=== PATIENT | female | born 2000 | race Hispanic/Latino ===

== ENCOUNTER 2020-05-18 21:44 | Emergency (ER) | payer OTHER ==
[~2020-05-18] VITALS: Ht 160 cm; Wt 56.9 kg
[2020-05-18] MEDS ORDERED: PRENTAB9 PO (21:50)
[2020-05-18 22:42] LABS: BASO % 0.1 % (0.0-1.0); EOS % 0.1 % (0.0-3.0); HEMATOCRIT 40.6 % (36.0-47.0); HEMOGLOBIN 13.6 g/dl (12.0-15.5); LYMPH # 1.7 10^3/uL (1.5-5.0); MEAN CORPUSCULAR HEMOGLOBIN 29.2 pg (27.0-33.0); MEAN CORPUSCULAR HGB CONC 33.5 g/dl (32.0-36.5); MEAN CORPUSCULAR VOLUME 87.1 fl (80.0-96.0); MONO # 0.8 10^3/uL (0.0-0.8); MONO % 7.3 % (2.0-8.0); NEUTROPHILS # 8.7 10^3/uL (1.5-8.5); NEUTROPHILS % 77.1 % (36.0-66.0); PLATELET COUNT, AUTOMATED 247 10^3/uL (150-450); RED BLOOD COUNT 4.66 10^6/uL (4.00-5.40); WHITE BLOOD COUNT 11.3 10^3/uL (4.0-10.0)
[2020-05-18 23:25] LABS: ALBUMIN 3.9 GM/DL (3.2-5.2); ALT/SGPT 20 U/L (12-78); BILIRUBIN,DIRECT 0.1 MG/DL (0.0-0.2); BILIRUBIN,TOTAL 0.3 MG/DL (0.2-1.0); BLOOD UREA NITROGEN 7 MG/DL (7-18); CALCIUM LEVEL 9.1 MG/DL (8.5-10.1); CARBON DIOXIDE LEVEL 24 MEQ/L (21-32); CHLORIDE LEVEL 107 MEQ/L (98-107); CREATININE FOR GFR 0.66 MG/DL (0.55-1.30); GLOMERULAR FILTRATION RATE > 60.0 (>60); GLUCOSE, FASTING 92 MG/DL (70-100); HCG, SERUM QUANTITATIVE 79920 MIU/ML; LIPASE 77 U/L (73-393); SODIUM LEVEL 141 MEQ/L (136-145); TOTAL PROTEIN 7.4 GM/DL (6.4-8.2)
--- NOTE | 2020-05-18 23:30 | REPVR ---
PROCEDURE INFORMATION: Exam: US First Trimester, Transabdominal Exam date and time: 05/18/2020 10:51 PM Age: 20 years old Clinical indication: Lmp or gestational age (in weeks): 6w 0d; Other: Vaginal bleeding; ; Additional info: Vaginal bleeding, 7 weeks TECHNIQUE: Imaging protocol: Real-time transabdominal obstetrical ultrasound of the maternal pelvis and a first trimester , less than 14 weeks 0 days, with image documentation. COMPARISON: No relevant prior studies available. FINDINGS: Gestation: Gestational sac within the uterus with pole and yolk sac. Embryonic/ heart rate: heartbeat of 115 bpm. Placenta: Unremarkable. No subchorionic bleed. Amniotic fluid: Amniotic fluid is normal for gestational age. BIOMETRY: Ashippun-Rump length: Ashippun-rump length is 3.9 mm suggesting an age of 6 weeks 1 day. The EDC is 01/10/2021. MATERNAL: Uterus: Unremarkable. Cervix: Unremarkable. Right adnexa: The right ovary measures 2.4 x 3.5 x 2.2 cm and demonstrates normal blood flow. Left adnexa: The left ovary measures 4.1 x 1.8 x 2.9 cm and demonstrates normal blood flow. Intraperitoneal space: No intraperitoneal free fluid. IMPRESSION: 1. Single live intrauterine fetus with an estimated age of 6 weeks 1 day. The EDC is 01/10/2021. 2. heartbeat of 115 bpm is noted. Electronically signed by: Shaan Hill On 05/18/2020 23:30:57 PM
[2020-05-19 00:18] LABS: CHLAMYDIA DNA AMPLIFICATION NEGATIVE (NEGATIVE); GC DNA AMPLIFICATION NEGATIVE (NEGATIVE)
[2020-05-19 01:07] VITALS: BP 130/68
== END 2020-05-19 01:08 | disposition home or self-care (01) ==
LOC: M ED 21:44
DX: O20.0 Threatened abortion (principal); Z3A.01 Less than 8 weeks gestation of pregnancy

== ENCOUNTER 2020-08-22 09:35 | Emergency (ER) | payer OTHER ==
[~2020-08-22] VITALS: Ht 160 cm; Wt 58.9 kg
[~2020-08-22 09:35] MED LIST: PRENTAB9 PO
[2020-08-22] MEDS ORDERED: IRON325T9 PO (09:44)
[2020-08-22] MEDS ORDERED: NS 1,000 ML IV ONE (12:15)
[2020-08-22] MEDS ORDERED: ACETAMINOPHEN TAB 650MG DOSE (2X325MG) PO ONE (12:15)
[2020-08-22 13:04] LABS: BASO % 0.2 % (0.0-1.0); EOS % 0.1 % (0.0-3.0); HEMATOCRIT 31.9 % (36.0-47.0); HEMOGLOBIN 10.6 g/dl (12.0-15.5); LYMPH # 1.9 10^3/uL (1.5-5.0); LYMPH % 14.9 % (24.0-44.0); MEAN CORPUSCULAR HEMOGLOBIN 30.3 pg (27.0-33.0); MEAN CORPUSCULAR HGB CONC 33.2 g/dl (32.0-36.5); MEAN CORPUSCULAR VOLUME 91.1 fl (80.0-96.0); MONO # 0.7 10^3/uL (0.0-0.8); MONO % 5.2 % (2.0-8.0); NEUTROPHILS % 79.1 % (36.0-66.0); PLATELET COUNT, AUTOMATED 206 10^3/uL (150-450); WHITE BLOOD COUNT 12.6 10^3/uL (4.0-10.0)
[2020-08-22] MEDS ORDERED: CEPH500C PO (14:12)
[2020-08-22] MEDS ORDERED: CEPHALEXIN 500 MG CAP PO ONE (14:20)
[2020-08-22 14:36] VITALS: BP 96/54
== END 2020-08-22 14:50 | disposition home or self-care (01) ==
LOC: M ED 09:35
DX: O23.42 Unspecified infection of urinary tract in pregnancy, second trimester (principal); Z3A.19 19 weeks gestation of pregnancy

== ENCOUNTER 2020-10-06 11:45 | Outpatient (CLI) | payer OTHER ==
[~2020-10-06] VITALS: Ht 160 cm; Wt 61.7 kg
[~2020-10-06 11:45] MED LIST changes: +CEPH500C PO; +IRON325T9 PO
[2020-10-06 12:04] VITALS: BP 107/51
--- NOTE | 2020-10-06 15:41 | IPNPDOC ---
Obstetrical Progress Note Date of Service Oct 06, 2020 Subjective 20yo at 26w2d by 1st TM US presents to triage with complaint of vaginal spotting this AM. States she noticed spotting after using the restroom first thing this AM, describes as pink tinge on tissue when wiping. Denies any bright red bleeding. Otherwise without OB complaint and denies pain/ctx, LOF or discharge +GFM. Also denies dysuria or hematuria, and denies hemorrhoids. Denies recent sexual activity Objective Vital Signs Date Time Temp Pulse Resp B/P (MAP) Pulse Ox O2 Delivery O2 Flow Rate FiO2 10/06/20 12:04 98.2 65 16 107/51 (69) Assessment Heart Rate (FHR): 120 Variability: Moderate Decelerations: None Heart Rate Tracing: Category I Tocometer Contractions: No Sterile Vaginal Examination Dilation: None (visually closed on speculum exam. moderate amount of thin, peterson discharge. Wet prep/VIV collected. +clue cells noted.) Assessment and Plan Additional Comments 20yo at 26w2d by 1TM US with TYLER 14 Oct with spotting. FHT reassuring, no contractions on tocometer. Bedside US performed, fetus in breech presentation with subjectively normal fluid and posterior placenta. Speculum exam performed with visually closed cervix and moderate amount of peterson-white discharge. +clue cells noted on wet prep. No blood noted in vaginal vault. Reviewed findings with patient and Rx provided for Flagyl. Pt states she has follow up US scheduled for next week for repeat evaluation of EIF noted on anatomy US. States she doesn't have a MARICARMEN appt - encouraged her to call clinic on Thursday and obtain MARICARMEN visit for 28wks. Return precautions given and all questions answered. MARYAM TRAORE M.D. Oct 06, 2020 15:41
== END 2020-10-06 13:15 | disposition home or self-care (01) ==
LOC: M LDO 11:45
PROVIDERS: ATTEND Obstetrics & Gynecology
DX: O26.852 Spotting complicating pregnancy, second trimester (principal); Z3A.26 26 weeks gestation of pregnancy; O32.1XX0 Maternal care for breech presentation, not applicable or unspecified; O26.892 Other specified pregnancy related conditions, second trimester; N89.8 Other specified noninflammatory disorders of vagina; Z79.899 Other long term (current) drug therapy
CPT/HCPCS: 76815; G0378; G0463

== ENCOUNTER 2021-01-08 00:57 | Outpatient (CLI) | payer OTHER ==
[~2021-01-08] VITALS: Ht 160 cm; Wt 68.9 kg
[2021-01-08 01:38] VITALS: BP 120/59
[2021-01-08 02:05] VITALS: BP 119/73
== END 2021-01-08 02:05 | disposition home or self-care (01) ==
LOC: M LDO 00:57
PROVIDERS: ATTEND Obstetrics & Gynecology
DX: O60.03 Preterm labor without delivery, third trimester (principal); Z3A.39 39 weeks gestation of pregnancy
CPT/HCPCS: 59025; G0378; G0463

== ENCOUNTER 2021-01-08 04:32 | Inpatient (IN) | payer OTHER ==
[2021-01-08] VITALS (36 sets, daily range): BP systolic 89–133; BP diastolic 49–76
[~2021-01-08] VITALS: Ht 160 cm; Wt 70.0 kg
[2021-01-08] MEDS ORDERED: OXYTOCIN DRIP 30 UNITS in IV 1 EA IV PRN ×4 (05:10)
[2021-01-08] MEDS ORDERED: METHYLERGONOVINE MALEATE 0.2 MG/ML VIAL (J2210) IM PRN (05:10)
[2021-01-08] MEDS ORDERED: LIDOCAINE 1% MDV 20ML VIAL INFIL PRN (05:10)
[2021-01-08] MEDS ORDERED: CARBOPROST TROMETHAMINE 250 MCG/ML AMP IM PRN (05:10)
[2021-01-08] MEDS ORDERED: TRANEXAMIC ACID INJection 1,000 MG in NS 100 ML IV PRN (05:10)
--- NOTE | 2021-01-08 05:40 | HPEPDOC ---
Obstetrical History & Physical General Date of Admission 01/08/21 History of Present Illness 20yo G1 at 39+5 presenting in labor with rupture of membranes around 0500 with clear fluid. She denies vaginal bleeding. Endorses regular painful contractions, desiring epidural. Endorses positive movement. Chief Complaint: Contractions, term, LOF, term Care Care: Other (late entry to care) Dating Final EDC: Jan 10, 2021 Final EDC by: LMP LMP: Mar 26, 2020 Antepartum Course Diagnos(e)s -late entry to care -ascus pap HPV neg -recurrent UTI on macrobid prophylaxis -anemia -varicella nonimmune Height (inches): 63 Pre- weight (lbs.): 115 Admission Weight (lbs.): 152 Change in Weight (lbs.): 37 Past Medical History Past Obstetrical History : Past Obstetrical History: Primgravida INFORMATION CODER History: Other (ascus HPV neg) Past Medical History Medical History migraines with aura Surgical History: Tooth extraction (wisdom) Family History Family History mother diabetes Social History Marital Status: Family situation: Spouse/partner home Psychosocial History: No pertinent psych hx * Smoker: non-smoker Alcohol: Denies Drugs: denies Abuse Violence Screening Have you been hit/kicked/slapp: No Have you been sexually assault: No Imunizations Tdap status: current Influenza Status: current Allergies Coded Allergies: No Known Allergies (Unverified , 05/18/20) Medications Scheduled Cephalexin (Cephalexin) 500 Mg Capsule, 500 MG PO TID Ferrous Sulfate (Iron) 325 Mg Tablet, 1 TAB PO DAILY No.137/Iron/Folic Acd ( Vitamin Tablet) 1 Each Tablet, 1 TAB PO DAILY Physical Examination Physical Examination GENERAL: Alert and oriented times three. ABDOMEN: Gravid and non-tender to touch. FETUS: Is vertex (VTX) by ultrasound, efw 3200g HEART RATE: Regular rate LUNGS: Clear to auscultation (CTA). EXTREMITIES: No edema. Laboratory Data Urine Culture: No Growth Pertinent Laboratoy Data Blood Type: O+ HIV: Negative Hepatitis B: Negative Rapid Plasma Reagin: Nonreactive Rubella: Immune Varicella: Nonreactive Chlamydia/Gonorrhea: Negative Group B Streptococcus: Negative Cystic Fibrosis: Negative Glucose Tolerance Test: 136 Anatomy Ultrasound Ultrasound Date: Jan 12, 2021 Placenta Location: Posterior Normal Anatomy: Yes Placenta Previa: No Steroid Therapy Steroid Therapy: No Vaginal Examination Dilation: 3 cm Effacement: 70% Station: -2 Cervical Consistency: Soft Cervical Position: Middle Presentation: Cephalic presentation Position: Vertex (occiput) Assessment Heart Rate (FHR): 130 Variability: Moderate Accelerations: Positive Decelerations: Early Tocometer Contractions: Yes Frequency: every 2-5 min. Multi-drug resistant Organism: No history of MDRO Assessment/Plan Assessment Verenice Lowery is a 20-year-old G1 at 39+5 weeks by LMP and 1st trimester ultrasound. Presents to Labor and Delivery (L&D) for contractions and loss of clear fluid. Grossly ruptured in triage. Cervix 3cm. Desires epidural. GBS negative. Category I tracing. Plan Admit and orient. Hammer Driver and consent. Diet: clear liquid. Group B Streptococcus (GBS) [negative]. Labs and intravenous (IV) per unit protocol. Counseled on Pitocin and induction of labor (IOL). Lactated Ringers at 125mL/hr. Anticipate [normal spontaneous delivery ()]. C-S as appropriate. Labor and Delivery Counseling L&D consent We will deliver your baby through the vagina with possible assistance of forceps or vacuum device if needed for maternal or indications. Forceps and vacuum are devices that can assist with vaginal delivery when normal pushing efforts cannot achieve delivery on their own or when delivery is needed in an emergency for baby's well-being. Medications may be required to induce or augment (help) your labor in order to achieve a vaginal delivery. An episiotomy may be required to help your baby to delivery vaginally. You may also require repair of any lacerations or tears of your vagina or vulva that are caused by delivery. In some cases, emergencies can occur that require an emergency section delivery so quickly that there may not be enough time to stop and complete consent forms for section. Understand that if this occurs, your providers will discuss the need for a section with you before they proceed with surgery. section is the delivery of your baby through an incision in your abdomen. In some situations, section may be safer to mom and baby than continuing labor and is only performed when clinically indicated. Risks of vaginal delivery include but are not limited to: Bleeding, infection, injury to the vagina, pelvic structures, injury to baby, damage to the uterus, reactions to anesthesia, uterine rupture, risk of hysterectomy for life threatening bleeding, or . Medications used to induce or augment labor may increase your risk for infection, uterine tachysystole, uterine rupture, heart rate abnormalities, need for emergency delivery or possible hysterectomy, and hemorrhage. Additional risks for use of forceps and vacuum include: increased risk of perineal and vaginal lacerations, risk of urinary or bowel incontinence, increased risk of injury to baby with bruising, scratches, hematomas on the head, or intracranial bleeding. PRINCE NEGRO. DO Jan 08, 2021 05:40
[2021-01-08 05:41] LABS: HEMATOCRIT 40.1 % (36.0-47.0); HEMOGLOBIN 13.3 g/dl (12.0-15.5); MEAN CORPUSCULAR HEMOGLOBIN 28.8 pg (27.0-33.0); MEAN CORPUSCULAR HGB CONC 33.2 g/dl (32.0-36.5); MEAN CORPUSCULAR VOLUME 86.8 fl (80.0-96.0); PLATELET COUNT, AUTOMATED 196 10^3/uL (150-450); RED BLOOD COUNT 4.62 10^6/uL (4.00-5.40); WHITE BLOOD COUNT 14.7 10^3/uL (4.0-10.0)
[2021-01-08] MEDS ORDERED: OXYTOCIN 30 UNITS IN 0.9% NaCl 500ML IV BAG (J2590) As Ordered ONE (05:45)
[2021-01-08] MEDS ORDERED: FENTANYL 2MCG/ML ROPIVACAINE 0.2% IN 0.9% NACL 100ML IVBAG As Ordered ONE (05:45)
[2021-01-08] MEDS: LR 1,000 ML IV SCH ×2 (07:38→10:44)
[2021-01-08] MEDS ORDERED: LACTATED RINGER'S 1000 ML IV PRN (08:10)
[2021-01-08] MEDS ORDERED: diphenhydrAMINE 50MG/ML VIAL (J1200) IV PRN (08:10)
[2021-01-08] MEDS ORDERED: EPIDURAL/PCA KEYS XX PRN (08:10)
[2021-01-08] MEDS ORDERED: FENTANYL/ROPIVACAINE/NACL BAG 100 ML EPIDURAL SCH (08:10)
[2021-01-08] MEDS ORDERED: REFRIGERATOR IV KEYS XX PRN (08:10)
[2021-01-08] MEDS ORDERED: NALOXONE INJ 0.4MG/1ML VIAL (J2310 PER 1MG) IV PRN (08:10)
[2021-01-08] MEDS ORDERED: EPIDURAL COMMENT XX SCH (08:10)
[2021-01-08] MEDS ORDERED: ONDANSETRON 4MG/2ML VIAL IV PRN (08:10)
[2021-01-08] MEDS: ePHEDrine SULFATE 25 MG/5 ML(5MG/ML) SYRINGE IV PRN ×3 (08:14→10:35)
[2021-01-08] MEDS ORDERED: OXYTOCIN DRIP 30 UNITS in IV 1 EA IV SCH (08:45)
[2021-01-08] MEDS ORDERED: OXYTOCIN INJ 10 UNITS/ML VIAL (J2590) IV ONE ×2 (11:10→12:05)
[2021-01-08 11:45] LABS: CORD GAS ABE A -3.1; CORD GAS HCO3 A 23.9 MEQ/L; CORD GAS O2 SAT A 27.8 %; CORD GAS PCO2 A 50.6 mmHg; CORD GAS PH A 7.293 UNITS; CORD GAS SBC A 20.2 MEQ/L; CORD GAS TCO2 A 25.5 MEQ/L
[2021-01-08 11:48] LABS: CORD GAS ABE V -2.9; CORD GAS HCO3 V 22.2 MEQ/L; CORD GAS O2 SAT V 50.6 %; CORD GAS PCO2 V 39.9 mmHg; CORD GAS PH V 7.363 UNITS; CORD GAS PO2 V 20.7 mmHg; CORD GAS SBC V 20.9 MEQ/L; CORD GAS TCO2 V 23.4 MEQ/L
[2021-01-08] MEDS ORDERED: ACETAMINOPHEN TAB 650MG DOSE (2X325MG) PO PRN (12:05)
[2021-01-08] MEDS ORDERED: METHYLERGONOVINE MALEATE 0.2 MG TAB PO PRN (12:05)
[2021-01-08] MEDS ORDERED: DOCUSATE SODIUM 100MG CAPSULE PO PRN (12:05)
[2021-01-08] MEDS ORDERED: DIBUCAINE 1% OINTMENT 30GM TOP PRN (12:05)
[2021-01-08] MEDS ORDERED: RHOGAM 300 MCG (1500 IU) INJ (J2790) IM SCH (12:05)
[2021-01-08] MEDS ORDERED: ANUSOL HC CREAM 30GM TOP PRN (12:05)
[2021-01-08] MEDS ORDERED: ACETAMINOPHEN 500 MG TAB PO PRN (12:05)
[2021-01-08] MEDS ORDERED: OXYTOCIN DRIP 30 UNITS in IV 1 EA IV ONE (12:05)
[2021-01-08] MEDS ORDERED: LR 1,000 ML IV SCH (12:05)
[2021-01-08] MEDS ORDERED: MOM 30ML SUSPENSION UDC PO PRN (12:05)
[2021-01-08] MEDS ORDERED: MEASLES,MUMPS,RUBELLA VACCINE INJ (MMR-II) (90707) SC SCH (12:05)
--- NOTE | 2021-01-08 14:08 | DN ---
DELIVERY NOTE DATE OF DELIVERY: 01/08/2021 This lady is a 1, para 0, admitted in active labor at full dilatation with epidural in place, spontaneous vaginal delivery, live- female infant, weighing 6 pounds 13 ounces, 3080 grams, scores of 9 and 9 at one and five minutes, respectively. Placenta delivered spontaneously thereafter. Three vessels in the cord. Membranes and tissues intact. Anterior, posterior, and lateral keen were complete. The uterus contracted well down under Pitocin. Arterial pH was 7.29, base excess -3.1, venous pH 7.36, base excess -2.9. Patient and baby tolerating procedure well.
[2021-01-09 06:08] VITALS: BP 100/60
[2021-01-09] MEDS: PRENATAL VITAMINS CHEWABLE TABLET PO SCH (08:21)
[2021-01-09 08:56] LABS: HEMATOCRIT 35.9 % (36.0-47.0); HEMOGLOBIN 11.5 g/dl (12.0-15.5); MEAN CORPUSCULAR HEMOGLOBIN 28.4 pg (27.0-33.0); MEAN CORPUSCULAR VOLUME 88.6 fl (80.0-96.0); PLATELET COUNT, AUTOMATED 169 10^3/uL (150-450); RED BLOOD COUNT 4.05 10^6/uL (4.00-5.40); WHITE BLOOD COUNT 14.4 10^3/uL (4.0-10.0)
--- NOTE | 2021-01-09 09:48 | IPN ---
PROGRESS NOTE DATE: 01/09/2021 SUBJECTIVE: A 20-year-old 1, now para 1 admitted with spontaneous rupture of membranes at 39-5 weeks of gestation. Epidural in place. Spontaneous vaginal delivery, female infant, 6 pounds, 13 ounces, 3080 gm. Apgars of 9 and 9 at 1 and 5 minutes respectively. Arterial pH was 7.29, base excess 3.1, venous pH 7.36, base excess -2.9. On her first day we discussed phlebitis, cystitis, mastitis, endometritis, cellulitis, diet, exercise, pain management, perineal, breast and wound care. OBJECTIVE: The rest of the examination unremarkable. Normocephalic, atraumatic. Neck: Full range of motions. Pupils equal and reactive to light. Distal pulses are symmetric. No DVT, PE, or superficial phlebitis. Chest is clear bilaterally at the bases. No wheezes or rhonchi. No CVA tenderness. Abdomen is soft. Four quadrant bowel sounds are noted. Uterus 2 below. Lochia is moderate. Perineum is intact. No rashes, lesions or pruritus. No arthralgias or myalgias. No complaint of joint pain. No complaint of cough, wheeze, shortness of breath or dyspnea on exertion. No nausea, vomiting, diarrhea or constipation. No urgency or frequency. PLAN: Plan is to discharge tomorrow morning. Medications are to be picked up at [facility]. Six week checkup at [facility]. All questions were answered. Twenty minute discussion. On her day one her blood pressure was 100/60, respirations 18, pulse 87, temperature 97.0. Her admitting hemoglobin was 13.3, hematocrit 40.1, and platelets are 196. Presently we have active patient doing well, breast feeding, anxious for discharge tomorrow morning. cc: [facility]
[2021-01-09] MEDS: IBUPROFEN 600MG TAB PO PRN (17:44)
[2021-01-09 18:00] VITALS: BP 94/52
[2021-01-10 06:00] VITALS: BP 105/59
[2021-01-10] MEDS: IBUPROFEN 600MG TAB PO PRN (08:34)
[2021-01-10] MEDS: PRENATAL VITAMINS CHEWABLE TABLET PO SCH (08:34)
--- NOTE | 2021-01-10 09:04 | IPNPDOC ---
Progress Note Date of Service: Jan 10, 2021 Day#: 2 Progress Note S: States she is doing well. Reports pain well controlled. She is ambulating well, tolerating a regular diet, urinating without difficulty, reports normal bowel activities and has no breast or leg pain. States she is working with for . Lochia is diminishing. Ambulating well, denies dizziness, lightheadedness. O: VS: General: Alert. Well-appearing, in no acute distress. PSYCH: Well groomed. Appropriate affect, normal mood. Conversed easily. Neuro: Oriented to time, place, and person. RESP: Lungs clear to auscultation bilaterally without wheezes, rales or rhonchi. Unlabored breathing. CV: Normal RRR, no murmur, c/w normal . No edema to bilateral upper and lower extremities. Negative calf tenderness. Breast: Soft, filling. No erythema or tenderness. Intact nipples. ABD: Soft, non-tender. BS normal x4 quad. Fundus: Firm U-1, Fundus non-tender. MSK: legs without calf tenderness or edema bilaterally SKIN: Dry, intact. A/P 20yo G 1 P 1 day 2 s/p at 39+5 wks gestation O positive/GBS negative/RI Varicella Non-immune: will need vaccine at [facility] Normal progression well with some latch difficulties. Working with nursing staff. VSS Plans Nexplanon or Depo for control after discharge. Plan to discuss further at visit. Discharge today when infant ready, to follow up in [facility] in 6-8wks for PP visit. Discharge teaching completed with patient, see discharge summary. VS, I&O, 24H, Mananbonmaynor Vital Signs/I&O Vital Signs Date Time Temp Pulse Resp B/P (MAP) Pulse Ox O2 Delivery O2 Flow Rate FiO2 01/10/21 06:00 97.4 56 16 105/59 (74) [address] LUTZ CNM Jan 10, 2021 09:04
--- NOTE | 2021-01-10 09:08 | DS.PDOC ---
Discharge Summary General Date of Admission Jan 08, 2021 at 05:27 Date of Discharge Jan 10, 2021 Discharge Summary Date of Admission: Date of Admission: 01/08/21 Admission Diagnosis: SROM at Term Delivery Date: 01/08/21 Discharge Diagnosis: Normal spontaneous vaginal delivery, term up to 40 weeks gestation [place] gestation, live infant Procedures: External Monitoring Epidural Augmentation Vaginal Delivery Condition on Discharge: Stable Discharged to: Home Hospital Course: Ms. Lowery is a 20 year old G1 now P1 who delivered a viable infant female at 39+5 weeks gestation via spontaneous vaginal delivery after arriving to unit in spontaneous labor. No lacerations. Ms. Lowery has had an uncomplicated course. She has remained afebrile and normotensive with diminishing lochia throughout her stay. She is ambulating well, tolerating a regular diet, urinating without difficulty, reports normal bowel activities and has no breast or leg pain. She is stable and ready for discharge. Day of discharge physical exam documented in progress note. Infant feeding at discharge is breastmilk. Planned control is either Depo or nexplanon, follow up at visit. To follow up in the [facility] in 6-8 weeks. Discharge management time Spent: <30 minutes I saw and evaluated the patient, and completed the documentation personally. -MAJ Geri Lutz CNM Vital Signs/I&Os Vital Signs Date Time Temp Pulse Resp B/P (MAP) Pulse Ox O2 Delivery O2 Flow Rate FiO2 01/10/21 06:00 97.4 56 16 105/59 (74) 98 Room Air Discharge Medications Scheduled Cephalexin (Cephalexin) 500 Mg Capsule, 500 MG PO TID Ferrous Sulfate (Iron) 325 Mg Tablet, 1 TAB PO DAILY, (Reported) No.137/Iron/Folic Acd ( Vitamin Tablet) 1 Each Tablet, 1 TAB PO DAILY, (Reported) Allergies Coded Allergies: No Known Allergies (Unverified , 05/18/20) GERI LUTZ CNM Jan 10, 2021 09:07
== END 2021-01-10 11:00 | disposition home or self-care (01) | DRG 807 ==
LOC: M LDO 04:32 → M LDI 05:27 → M OBS 14:23
PROVIDERS: ADMIT Obstetrics & Gynecology; ATTEND Obstetrics & Gynecology
PROC: 10E0XZZ Delivery of Products of Conception, External Approach (ICD-10-PCS; principal; 2021-01-08)
DX: O99.02 Anemia complicating childbirth (principal); Z37.0 Single live birth; D64.9 Anemia, unspecified; Z3A.39 39 weeks gestation of pregnancy

== ENCOUNTER 2021-01-16 18:56 | Emergency (ER) | payer OTHER ==
[~2021-01-16] VITALS: Ht 160 cm; Wt 6.3 kg
--- OUTSIDE RECORDS SUMMARY | 2021-01-16 19:03 | CCD ---
Author Author [facility] Organization [facility] Address Unknown Phone Unavailable Support Name Relationship Address Phone UE Next Of Kin Unknown Unavailable STEVE PATRICIA Next Of Kin [address] [place] [address] STEVE PATRICIA ECON [address] [address] Unavailable Re-disclosure Warning The records that you are about to access may contain information from federally-assisted alcohol or drug abuse programs. If such information is present, then the following federally mandated warning applies: This information has been disclosed to you from records protected by federal confidentiality rules (42 CFR part 2). The federal rules prohibit you from making any further disclosure of this information unless further disclosure is expressly permitted by the written consent of the person to whom it pertains or as otherwise permitted by 42 CFR part 2. A general authorization for the release of medical or other information is NOT sufficient for this purpose. The Federal rules restrict any use of the information to criminally investigate or prosecute any alcohol or drug abuse patient.The records that you are about to access may contain highly sensitive health information, the redisclosure of which is protected by Article 27-F of the [facility] Public Health law. If you continue you may have access to information: Regarding HIV / AIDS; Provided by facilities licensed or operated by the [facility] Office of Mental Health; or Provided by the [facility] Office for People With Developmental Disabilities. If such information is present, then the following [facility] mandated warning applies: This information has been disclosed to you from confidential records which are protected by state law. State law prohibits you from making any further disclosure of this information without the specific written consent of the person to whom it pertains, or as otherwise permitted by law. Any unauthorized further disclosure in violation of state law may result in a fine or [place] health care facility sentence or both. A general authorization for the release of medical or other information is NOT sufficient authorization for further disc losure. Medications No Information Insurance Providers Payer name Policy type / Coverage type Policy ID Covered republican ID Covered republican's relationship to hicks Policy Hicks Plan Information [facility] [id number] [facility] [id number] Problems, Conditions, and Diagnoses No Information Surgeries/Procedures No Information Results No Information Social History No Information
[2021-01-16] MEDS ORDERED: COLA100C5 PO (19:04)
[2021-01-16] MEDS ORDERED: NS 1,000 ML IV ONE (19:50)
--- NOTE | 2021-01-16 20:43 | IPNPDOC ---
Text Note Date of Service The patient was seen on 01/16/21. NOTE Consulted by [facility] to see Verenice Lowery, now day #8 from an uncomplicated spontaneous vaginal delivery. She had called the call pager earlier and stated that she had a bloody sac stuck in her vagina. I advised her to come to the ED for evaluation. She reports increased bleeding since yesterday requiring pad changes every 4 hours. Denies f/c/n/v/cp/sob/abd pain/dizziness/palpitations/lightheadedness. Vitals reviewed alert and oriented x3, well appearing, conversant and excellent historian heent atraumatic nonlabored breathing abd soft, nontender, nondistended, uterus firm no edema pelvic exam: (SIVAKUMAR Kennedy bookstore manager) nefg, blood and membranous sac visible at introitus. With gentle application of ring forceps about 6cm length of apparent placenta and membranes removed. SPeculum then placed and blood/clot removed from vagina. Cervix visualized with no apparent membranes visible, hemostasis was noted. Awaiting pelvic ultrasound. VS,Fishbone, I+O VS, Fishbone, I+O Vital Signs Date Time Temp Pulse Resp B/P (MAP) Pulse Ox O2 Delivery O2 Flow Rate FiO2 01/16/21 18:59 97.9 111 18 133/82 (99) 97 Room Air PRINCE NEGRO DO Jan 16, 2021 20:43
[2021-01-16 20:46] LABS: BASO % 0.2 % (0.0-1.0); EOS # 0.1 10^3/uL (0.0-0.5); EOS % 0.5 % (0.0-3.0); HEMATOCRIT 41.5 % (36.0-47.0); HEMOGLOBIN 13.3 g/dl (12.0-15.5); LYMPH # 1.9 10^3/uL (1.5-5.0); LYMPH % 17.3 % (24.0-44.0); MEAN CORPUSCULAR HEMOGLOBIN 28.5 pg (27.0-33.0); MEAN CORPUSCULAR VOLUME 88.9 fl (80.0-96.0); MONO # 0.8 10^3/uL (0.0-0.8); MONO % 7.1 % (2.0-8.0); NEUTROPHILS # 8.2 10^3/uL (1.5-8.5); NEUTROPHILS % 74.5 % (36.0-66.0); PLATELET COUNT, AUTOMATED 333 10^3/uL (150-450); RED BLOOD COUNT 4.67 10^6/uL (4.00-5.40)
--- OUTSIDE RECORDS SUMMARY | 2021-01-16 21:20 | CCD ---
Author Author [facility] Organization [facility] Address Unknown Phone Unavailable Support Name Relationship Address Phone UE Next Of Kin Unknown Unavailable STEVE PATRICIA Next Of Kin [address] [place] [address] STEVE PATRICIA ECON [address] [facility] [place] [address] Unavailable Re-disclosure Warning The records that you [...] is protected by Article 27-F of the [facility] Public Health law. If you continue you may have access to information: Regarding HIV / AIDS; Provided by facilities licensed or operated by the [facility] Office of Mental Health; or Provided by the [facility] Office for People With Developmental Disabilities. If such information is present, then the following [facility] mandated warning applies: This information has [...] law may result in a fine or retirement sentence or both. A general authorization for the release of medical or other information is NOT sufficient authorization for further disc losure. Medications No Information Insurance Providers Payer name Policy type / Coverage type Policy ID Covered alliance party ID Covered alliance party's relationship to hicks Policy Hicks Plan Information [facility] [id number] [facility] [id number] Problems, Conditions, and Diagnoses No Information Surgeries/Procedures No Information Results No Information Social History No Information
[2021-01-16 21:21] LABS: BLOOD UREA NITROGEN 7 MG/DL (7-18); CALCIUM LEVEL 8.5 MG/DL (8.5-10.1); CARBON DIOXIDE LEVEL 28 MEQ/L (21-32); CHLORIDE LEVEL 109 MEQ/L (98-107); CREATININE FOR GFR 0.62 MG/DL (0.55-1.30); GLOMERULAR FILTRATION RATE > 60.0 (>60); GLUCOSE, FASTING 95 MG/DL (70-100); POTASSIUM SERUM 3.8 MEQ/L (3.5-5.1); SODIUM LEVEL 143 MEQ/L (136-145)
--- NOTE | 2021-01-16 22:21 | REPVR ---
PROCEDURE INFORMATION: Exam: US Nonobstetric Pelvis; Complete Exam date and time: 01/16/2021 9:01 PM Age: 20 years old Clinical indication: Other: Vag bleeding w/ clots; 8 days ; Additional info: Vag bleeding with clots 8 days vag delivery TECHNIQUE: Imaging protocol: Transabdominal pelvic nonobstetric ultrasound. Complete exam. Real time ultrasound with image documentation. COMPARISON: No relevant prior studies available. FINDINGS: Uterus/cervix: The uterus measures 15.4 cm in length by 8.2 cm in AP dimension. The endometrium measures approximately 1.8 cm in thickness. There is a irregular linear collection of fluid within the endometrium probably blood and blood products. According to the doctor the has already removed retained products. The ovaries are obscured by bowel gas. Intraperitoneal space: There is no evidence of free fluid in the pelvis. Urinary bladder: Normal appearing urinary bladder. Other findings: No evidence of adnexal mass. IMPRESSION: Small amount of fluid within the endometrium probably blood and blood products. Electronically signed by: John Doran On 01/16/2021 22:20:38 PM
[2021-01-16 22:30] VITALS: BP 135/75
== END 2021-01-16 23:00 | disposition home or self-care (01) ==
LOC: M ED 18:56
DX: O72.0 Third-stage hemorrhage (principal)